=== PATIENT | female | born 1965 | race Two or more races ===

== ENCOUNTER 2019-01-21 12:11 | Emergency (ER) | payer MEDICAID ==
[~2019-01-21] VITALS: Ht 154.9 cm; Wt 54.4 kg
[2019-01-21 12:15] VITALS: BP 129/88
--- NOTE | 2019-01-21 12:15 | NUR ---
ED Nurse Note: Patient brought in by RA from [facility] due to abdominal pain and vomiting since this morning. Has medical hx of liver ca. Patient vomited x1 episode at ER. No SOB. Breathing even and unlabored. Afebrile. Patient placed on monitoring tech.
--- NOTE | 2019-01-21 12:20 | NUR ---
ED Nurse Note: IV line established. Blood collected and sent to lab.
[2019-01-21] MEDS ORDERED: Omnipaque-300 100ml vial INJ PRN (12:45)
[2019-01-21 13:15] LABS: HEMATOCRIT 21.7 % (37.0-47.0); MEAN CORPUSCULAR VOLUME 108 FL (80-99); PLATELET COUNT 243 K/UL (150-450); RED BLOOD COUNT 2.01 M/UL (4.20-5.40); RED CELL DISTRIBUTION WIDTH 14.8 % (11.6-14.8)
[2019-01-21 13:19] LABS: HEMOGLOBIN 6.9 G/DL (12.0-16.0)
[2019-01-21 13:25] LABS: ANION GAP 8 mmol/L (5-15); BLOOD UREA NITROGEN 35 mg/dL (7-18); CALCIUM 8.1 MG/DL (8.5-10.1); CARBON DIOXIDE 27 MMOL/L (21-32); CHLORIDE 104 MMOL/L (98-107); CREATININE 1.2 MG/DL (0.55-1.30); POTASSIUM 3.9 MMOL/L (3.5-5.1); SODIUM 139 MMOL/L (136-145)
[2019-01-21 13:29] LABS: ALANINE AMINOTRANSFERASE 30 U/L (12-78); ALBUMIN 2.2 G/DL (3.4-5.0); ALBUMIN/GLOBULIN RATIO 0.5 (1.0-2.7); ALKALINE PHOSPHATASE 174 U/L (46-116); ASPARTATE AMINO TRANSFERASE 63 U/L (15-37); BILIRUBIN,TOTAL 0.6 MG/DL (0.2-1.0)
--- NOTE | 2019-01-21 13:31 | NUR ---
ED Nurse Note: Pt taken for CT.
[2019-01-21] MEDS ORDERED: FUROSEMIDE20 M1 ORAL (13:54)
[2019-01-21] MEDS ORDERED: ZINC SULFATE220 M1 ORAL (13:54)
[2019-01-21] MEDS ORDERED: MULTIVITAMINS1 EAC8 ORAL (13:54)
[2019-01-21] MEDS ORDERED: TYLENOL EXTRA500 MG ORAL (13:54)
[2019-01-21] MEDS ORDERED: ZOFRAN4 M3 ORAL (13:54)
[2019-01-21] MEDS ORDERED: COLACE100 MG ORAL (13:54)
[2019-01-21] MEDS ORDERED: MORPHINE S10 MG/5 ML ORAL (13:54)
[2019-01-21] MEDS ORDERED: ATIVAN0.5 MG ORAL (13:54)
[2019-01-21] MEDS ORDERED: HYOSYNE0.125 MG/1 PO (13:54)
--- NOTE | 2019-01-21 14:10 | Emergency Room Report ---
History of Present Illness General Chief Complaint: Abdominal Pain Source: Patient Present Illness Allergies: Coded Allergies: No Known Allergies (Unverified , 01/21/19) Nursing Documentation-[facility] Past Medical History: No History, Except For Physical Exam Vital Signs Date Time Temp Pulse Resp B/P (MAP) Pulse Ox O2 Delivery O2 Flow Rate FiO2 01/21/19 12:13 98.2 91 19 129/88 (102) 98 Room Air Medical Decision Making Diagnostic Impression: Primary Impression: Liver cancer, primary, with metastasis from liver to other site Additional Impressions: Ascites Anemia Hospice care patient Laboratory Tests Test 01/21/19 12:41 01/21/19 14:20 White Blood Count 8.0 K/UL (4.8-10.8) Red Blood Count 2.01 M/UL (4.20-5.40) L Hemoglobin 6.9 G/DL (12.0-16.0) *L Hematocrit 21.7 % (37.0-47.0) L Mean Corpuscular Volume 108 FL (80-99) H Mean Corpuscular Hemoglobin 34.4 PG (27.0-31.0) H Mean Corpuscular Hemoglobin Concent 31.9 G/DL (32.0-36.0) L Red Cell Distribution Width 14.8 % (11.6-14.8) Platelet Count 243 K/UL (150-450) Mean Platelet Volume 5.7 FL (6.5-10.1) L Neutrophils (%) (Auto) % (45.0-75.0) Lymphocytes (%) (Auto) % (20.0-45.0) Monocytes (%) (Auto) % (1.0-10.0) Eosinophils (%) (Auto) % (0.0-3.0) Basophils (%) (Auto) % (0.0-2.0) Differential Total Cells Counted 100 Neutrophils % (Manual) 78 % (45-75) H Lymphocytes % (Manual) 13 % (20-45) L Monocytes % (Manual) 7 % (1-10) Eosinophils % (Manual) 1 % (0-3) Basophils % (Manual) 1 % (0-2) Band Neutrophils 0 % (0-8) Platelet Estimate Adequate Platelet Morphology Normal Hypochromasia 3+ Anisocytosis 1+ Macrocytosis 1+ Sodium Level 139 MMOL/L (136-145) Potassium Level 3.9 MMOL/L (3.5-5.1) Chloride Level 104 MMOL/L (98-107) Carbon Dioxide Level 27 MMOL/L (21-32) Anion Gap 8 mmol/L (5-15) Blood Urea Nitrogen 35 mg/dL (7-18) H Creatinine 1.2 MG/DL (0.55-1.30) Estimate Glomerular Filtration Rate 46.8 mL/min (>60) Glucose Level 84 MG/DL (74-106) Calcium Level 8.1 MG/DL (8.5-10.1) L Total Bilirubin 0.6 MG/DL (0.2-1.0) Aspartate Amino Transferase (AST) 63 U/L (15-37) H Alanine Aminotransferase (ALT) 30 U/L (12-78) Alkaline Phosphatase 174 U/L (46-116) H Total Protein 6.4 G/DL (6.4-8.2) Albumin 2.2 G/DL (3.4-5.0) L Globulin 4.2 g/dL Albumin/Globulin Ratio 0.5 (1.0-2.7) L Lipase 1067 U/L (73-393) H Prothrombin Time 11.3 SEC (9.30-11.50) Prothrombin Time INR 1.1 (0.9-1.1) PTT 33 SEC (23-33) Last Vital Signs Date Time Temp Pulse Resp B/P (MAP) Pulse Ox O2 Delivery O2 Flow Rate FiO2 01/21/19 12:15 98.2 78 19 129/88 98 Room Air Referrals: NON PHYSICIAN (PCP) Lizzeth Luna DO Jan 21, 2019 14:10
--- NOTE | 2019-01-21 14:20 | NUR ---
ED Nurse Note: Hgb level is 6.9, patient refused BT. aware. Explained risk and benefits x3, verbally understand.
--- NOTE | 2019-01-21 14:39 | NUR ---
ED Nurse Note: Pt taken for US Paracentesis. Consent was obtained.
--- NOTE | 2019-01-21 15:10 | Diagnostic Imaging Report ---
Indication: Abdominal pain Technique: Continuous helical transaxial imaging of the abdomen and pelvis was obtained from the lung bases to the pubic symphysis during intravenous contrast administration. Coronal 2-D reformats were also obtained. Study obtained in a Siemens sensation [address] Automatic Exposure Control was utilized. Total Dose length Product (DLP): 718.[address] Dose Index Volume (CTDIvol): 11.4 mGy Comparison: None Findings: Small bilateral pleural effusions are present. There is evidence of scarring in the area of the middle lobe with thickening of the fissure and adjacent linear densities likely fibrosis or scarring. Some cystic formation also noted within the area of scarring. There is moderate to severe ascites demonstrated. There is nodularity liver surface with multiple ill-defined partially enhancing, partially cystic hypodense lesions presumably representing malignancy. There is evidence of complex partially cystic tumor within the lizzy hepatis and peripancreatic region as well. Correlate with the clinical history. There is a hiatal hernia. There are multiple vessels adjacent to the aorta. These may be azygos collaterals. The IVC is severely compressed and more distally appears completely compressed. Continuation into the iliac veins shows complete nonvisualization of both iliac veins, which may be chronically thrombosed and scarred or not visualized on the basis of severe extrinsic compression. There is flow within the femoral veins bilaterally. The visualized portion of the femoral veins appear to show intraluminal thrombus. There is no evidence of bowel obstruction. Kidneys are unremarkable. The spleen pancreas appear unremarkable. Biliary ducts are moderately dilated. Gallbladder is noted unremarkable. There is no adrenal mass is identified. Patient is diffusely cachectic. IMPRESSION: Severe ascites. Malignancy within the liver, lizzy hepatis and peripancreatic region. Suspected bilateral lower extremity DVT with thrombus demonstrated in the in the visualized femoral veins. Completely collapsed iliac veins (either extrinsically compressed or chronically thrombosed). Associated azygos collaterals. Small bilateral pleural effusions. Scarring in the middle lobe. The CT scanner at [facility] is accredited by the [employer] and the scans are performed using dose optimization techniques as appropriate to a performed exam including Automatic Exposure control.
[2019-01-21 15:11] LABS: INR 1.1 (0.9-1.1)
[2019-01-21 15:45] VITALS: BP 131/73
--- NOTE | 2019-01-21 16:13 | NUR ---
ED Nurse Note: Patient came back from US paracentesis.
[2019-01-21 18:22] VITALS: BP 132/84
--- NOTE | 2019-01-21 18:22 | NUR ---
ED Nurse Note: Pt cleared by VIJAYAD for discharge. Accompanied by 2 EMT via finn. DC instructions was given and explained to pt and verbalized understanding of teachings. All medical devices such as ID band and IV line removed. Pt is AAO x4, ambulatory and left with all personal belongings.
--- NOTE | 2019-01-24 12:55 | Diagnostic Imaging Report ---
Indications: Ascites Procedure: Informed consent obtained. Ultrasound used to localize optimal puncture site. Sterile prepping and draping over the optimum site. Local anesthesia with 1% lidocaine. Under real-time ultrasound guidance, puncture of the peritoneal space performed using paracentesis needle. Digital image was saved and archived. Stylet removed. Catheter placed to vacuum bottle suction. Fluid was aspirated. Patient tolerated procedure well, without immediate complication. Findings: Followup sonography demonstrates complete resolution of peritoneal fluid Impression: Successful ultrasound-guided paracentesis, yielding 8.8 liters of fluid
== END 2019-01-21 18:22 ==
LOC: EDBD 12:11 → EMR 12:48
DX: C22.8 Malignant neoplasm of liver, primary, unspecified as to type (principal); C79.89 Secondary malignant neoplasm of other specified sites; R18.8 Other ascites; D64.9 Anemia, unspecified
CPT/HCPCS: 36415; 74177; 76942; 80053; 83690; 85007; 85025; 85610; 85730; 96361; 96374; J2405; Q9967; Z7502; 99284; J7030